=== PATIENT | male | born 1985 ===

== ENCOUNTER 2024-08-04 21:04 | Emergency (ER) | payer OTHER, SELFPAY ==
[2024-08-04 21:05] VITALS: BMI 27.6
[2024-08-04 21:07] VITALS: BP 140/90
--- NOTE | 2024-08-05 00:21 | ED.GENMED ---
History of Present Illness
General
Chief Complaint: Skin Problem
Source: patient
Time Seen by Provider: 08/04/24 23:45
History of Present Illness
History of Present Illness:
39-year-old male presents to the emergency room complaining of having a laceration to his left hand. Patient was moving a mirror when it shattered causing a laceration to his left hand. Patient is right-hand dominant. No other injuries then to
his hand.
Phy Exam
Physical Exam
Physical Exam:
General: Awake, Alert, Oriented X3. No acute distress.
Vitals: unremarkable
Head: Atraumatic
Eyes: Pupils equal, EOMI
Neck: Trachea midline
Neuro: Nonfocal
Skin: Warm, dry, no rash
Extremities: pulses equal b/l, no edema. Approximately 5 cm laceration over the dorsal surface of the left hand essentially in the middle of the hand. Laceration extends down into the subcutaneous some muscle tissue. Centrally I can see a small
amount of tendon movement at the very base of the laceration but no tendon injury. Fingers have a normal lie when the hand is move through a range of motion. He is able to maintain extension in his fingers against resistance. Sensation is intact.
Overall I see no evidence for tendon involvement. Also after probing the wound and carefully examining the wound after administration of lidocaine I do not identify any foreign bodies
Course
Orders/Labs/Results
Orders:
Orders
08/04/24 21:10
CR Hand - Left Min 3 Views Urgent
Comment:
Reason For Exam: injury
08/05/24 00:30
Cephalexin Monohydrate [Keflex] 500 mg PO NOW STA
Vital Signs
Initial and Last Documented VS:
Initial Vital Signs
Temp Pulse Resp BP Pulse Ox
98.2 F 107 20 140/90 95
08/04/24 21:07 08/04/24 21:07 08/04/24 21:07 08/04/24 21:07 08/04/24 21:07
Last Documented Vital Signs
Temp Pulse Resp BP Pulse Ox
98.2 F 107 20 140/90 95
08/04/24 21:07 08/04/24 21:07 08/04/24 21:07 08/04/24 21:07 08/04/24 21:07
Procedures
Laceration Closure
Left Hand:
Status of Wound: clean
Size of Wound in cm: 5
Description of Wound Edges: ragged
Preparation: cleaned with saline
Anesthesia: 1% Lidocaine with epi and added Na Bicarb to local
Revision/Debridement: debrided
Wound exploration: explored to base- no FB and no tendon involvement
Type of Closure: single layer closure
Skin Closure Material: 4-0 nylon and 5-0 nylon
Number of sutures: 11
Additional information:
Combination of vertical mattress and simple interrupted sutures
MDM/Problems Addressed
Differential Diagnosis Includes:
Skin laceration, tendon injury
MDM/Problems Addressed:
After thorough examination of the laceration with the hand through a range of motion I do not identify a tendon injury. Wound primarily closed. Will cover with antibiotics. Recommend patient follow-up with hand surgery as an outpatient. Contact
information given for Dr. Corbett
Radiology report question the presence of a foreign body. The wound was thoroughly explored and I did not detect any glass in the wound or foreign body in the wound.
*Radiology
Radiology exam reviewed: radiology read reviewed
*Pulse Oximetry
Patient hypoxic: no
*Critical Care Note
Total Time (30-74mins, 75-104mins- exclusive of procedures): Not Applicable
ED Attending Note
-
Portions of this chart may have been created with voice recognition software.� Occasional wrong word or��sound alike� substitutions may have occurred due to the inherent limitations of voice recognition software.
Discharge Plan
Departure
Patient Disposition: Home (Routine Discharge)
Date of Disposition: 08/05/24
Time of Disposition: 00:26
Patient with high blood pressure during this ER visit?: Yes
Condition: Good
Discharge Problem:
Laceration of hand, left
Instructions: BLOOD PRESSURE, Laceration
Prescriptions:
New
cephalexin 500 mg capsule
500 mg PO BID Qty: 10 0RF
Referrals:
Jhonny Corbett MD [Active] -
Activity Restrictions/Additional Instructions:
The stitches in your hand should be removed in 7 to 10 days. I have provided contact information for Dr. Corbett who is one of our hand surgeons. You should call tomorrow morning to make an appointment for follow-up. Return to the emergency room if
develop a fever or redness around the wound.
Interventions
Interventions:
*General Assessment Last Done: 08/04/24 21:07
*Nursing Disposition Last Done: 08/05/24 01:09
ED-Skin Assessment Last Done: 08/05/24 00:03
Discharge Date and Time
Discharge Date/Time: 08/05/24 01:09
Print Language: TURKISH
[2024-08-05] MEDS: KEFLEX 500 MG PO (00:50)
== END 2024-08-05 01:09 | disposition home or self-care (01) ==
LOC: EMR 21:04
PROVIDERS: EMERGENCY PHYSICIAN Emergency Medicine
DX: S61.412A Laceration without foreign body of left hand, initial encounter (principal); W25.XXXA Contact with sharp glass, initial encounter
CPT/HCPCS: 12002; 99283; 73130